=== PATIENT | male | born 1970 | race Two or more races ===

== ENCOUNTER 2023-03-16 19:31 | Inpatient (IN) | payer OTHER, MEDICAID ==
[~2023-03-16] VITALS: Ht 180.3 cm; Wt 61.9 kg
[2023-03-16] MEDS ORDERED: HYDROmorphone HCL 2 MG/ML VL/or syr IM ONE (22:30)
[2023-03-16 23:21] LABS: Basophils # (auto) 0.2 10 ^3/uL (0-0.2); Basophils % (auto) 3.7 % (0.0-2.0); Eosinophils # (auto) 0.1 10 ^3/uL (0-0.8); Hematocrit 38.7 % (41.0-53.0); Hemoglobin 13.2 g/dL (13.5-17.5); Lymphocytes # (auto) 2.6 10 ^3/uL (0.4-5.4); Lymphocytes % (auto) 38.9 % (10.0-50.0); Mean Corpuscular Hemoglobin 30.8 pg (28.0-32.0); Mean Corpuscular Hgb Conc. 34.2 g/dL (32.0-36.0); Mean Corpuscular Volume 90.3 fL (80.0-100.0); Monocytes # (auto) 0.2 10 ^3/uL (0-1.3); Monocytes % (auto) 3.5 % (0.0-12.0); Neutrophils # (auto) 3.5 10 ^3/uL (1.6-8.6); Neutrophils % (auto) 52.9 % (37.0-80.0); Nucleated Red Blood Cells % 0.2 %; Red Blood Cells 4.28 10^6/uL (4.5-5.90); Red Cell Distribution Width 13.8 % (11.8-14.3); White Blood Cell 6.6 10^3/uL (4.4-10.8)
[2023-03-16 23:28] LABS: Albumin 3.5 g/dL (3.4-5.0); Calcium 9.4 mg/dL (8.5-10.1); Potassium 3.5 mmol/L (3.5-5.1)
[2023-03-16 23:32] LABS: BUN/Creatinine Ratio 12.6 (10.0-20.0); Bilirubin, Total 0.9 mg/dL (0.2-1.0); Total Protein 8.9 g/dL (6.4-8.2)
[2023-03-17] MEDS ORDERED: ONDANSETRON ODT 4 MG TAB PO ONE (08:00)
[2023-03-17] MEDS ORDERED: MORPHINE SULFATE 4 MG/ML SYR/VIAL IM ONE (08:00)
[2023-03-17] MEDS ORDERED: chlordiazePOXIDE HCL 25 MG CAP PO ONE ×2 (09:30→21:30)
[2023-03-17 13:55] LABS: Hematocrit 37.4 % (41.0-53.0); Hemoglobin 12.3 g/dL (13.5-17.5); Mean Corpuscular Hemoglobin 30.4 pg (28.0-32.0); Red Blood Cells 4.07 10^6/uL (4.5-5.90); Red Cell Distribution Width 13.6 % (11.8-14.3); White Blood Cell 5.8 10^3/uL (4.4-10.8)
[2023-03-17 14:22] LABS: Band Neutrophils % (manual) 0; Basophils % (manual) 0 (0.0-2.0); Blast Cells 0; Eosinophils % (manual) 0 (0-7); Metamyelocytes % 0; Myelocytes % 0; Promyelocytes % 0; Reactive Lymphocytes 0
[2023-03-17 14:35] LABS: Albumin 3.3 g/dL (3.4-5.0); Calcium 9.2 mg/dL (8.5-10.1); Potassium 3.9 mmol/L (3.5-5.1)
[2023-03-17 14:37] LABS: BUN/Creatinine Ratio 19.2 (10.0-20.0); Bilirubin, Total 1.4 mg/dL (0.2-1.0); Total Protein 8.4 g/dL (6.4-8.2)
[2023-03-17 15:21] LABS: Lymphocytes % (manual) 65 (10.0-50.0); Monocytes % (manual) 3 (0-12)
[2023-03-17] MEDS: KETOROLAC TROMETH 30 MG/ML 1ML VIAL IV ONE ×2 (15:30→17:13)
[2023-03-17] MEDS ORDERED: LIDOCAINE 5% TOPICAL PATCH TOP ONE (15:30)
[2023-03-17] MEDS ORDERED: ACETAMINOPHEN 325 MG TAB PO PRN (15:30)
[2023-03-17] MEDS ORDERED: HYDR-3682 PO (15:35)
[2023-03-17] MEDS ORDERED: ATOR20TA50 PO (15:35)
[2023-03-17] MEDS ORDERED: AMLO-496 PO (15:35)
[2023-03-17] MEDS ORDERED: ATEN25TA PO (15:35)
[2023-03-17] MEDS ORDERED: SODIUM CHLORIDE 0.9% 1,000 ML IV ONE ×2 (15:45)
[2023-03-17] MEDS ORDERED: NICOTINE 7MG/24HR TOPICAL PATCH TD ONE (15:45)
[2023-03-17] MEDS ORDERED: PANTOPRAZOLE 40 MG/10 ML VIAL INJ IV ONE (15:45)
[2023-03-17 16:22] LABS: INR 1.06 (0.9-1.15); Partial Thromboplastin Time 31.7 sec (24.6-33.4)
[2023-03-17 17:14] LABS: Cholesterol 214 mg/dL (< 200); HDL Cholesterol 89 mg/dL (40-59); LDL Cholesterol 106 mg/dL (< 100); Triglycerides 130 mg/dL (< 150)
[2023-03-17 22:23] VITALS: BP 99/70
[2023-03-17] MEDS ORDERED: MORP1TAB14 PO (22:46)
[2023-03-17] MEDS ORDERED: CHLO25CA56 PO (22:46)
[2023-03-18] VITALS (7 sets, daily range): BP systolic 76–107; BP diastolic 45–77
[2023-03-18] MEDS: HYDROcodone-ACET 5/325MG TAB PO PRN ×2 (00:22→10:02)
[2023-03-18 06:06] LABS: Potassium 3.4 mmol/L (3.5-5.1)
[2023-03-18 06:17] LABS: Albumin 2.5 g/dL (3.4-5.0); BUN/Creatinine Ratio 13.3 (10.0-20.0); Bilirubin, Total 1.1 mg/dL (0.2-1.0); Calcium 8.2 mg/dL (8.5-10.1); Total Protein 6.6 g/dL (6.4-8.2)
[2023-03-18 06:46] LABS: Hematocrit 32.7 % (41.0-53.0); Mean Corpuscular Hemoglobin 30.3 pg (28.0-32.0); Mean Corpuscular Hgb Conc. 33.7 g/dL (32.0-36.0); Mean Corpuscular Volume 89.8 fL (80.0-100.0); Red Blood Cells 3.65 10^6/uL (4.5-5.90); Red Cell Distribution Width 13.4 % (11.8-14.3); White Blood Cell 4.6 10^3/uL (4.4-10.8)
[2023-03-18 06:50] LABS: Basophils % (manual) 0 (0.0-2.0); Blast Cells 0; Metamyelocytes % 0; Myelocytes % 0; Promyelocytes % 0
[2023-03-18 07:24] LABS: Band Neutrophils % (manual) 1; Eosinophils % (manual) 2 (0-7); Lymphocytes % (manual) 57 (10.0-50.0); Monocytes % (manual) 5 (0-12); Reactive Lymphocytes 1
[2023-03-18] MEDS: PANTOPRAZOLE 40 MG/10 ML VIAL INJ IV SCH (10:02)
[2023-03-18] MEDS: NICOTINE 7MG/24HR TOPICAL PATCH TD SCH (10:03)
[2023-03-18] MEDS: LIDOCAINE 5% TOPICAL PATCH TOP SCH (10:03)
[2023-03-18] MEDS ORDERED: QUET50TA27 PO (15:18)
[2023-03-18] MEDS ORDERED: TRAZ50TA2 PO (15:18)
[2023-03-18] MEDS ORDERED: CITA-77 PO (15:18)
[2023-03-18] MEDS ORDERED: POM PO (15:24)
[2023-03-18] MEDS: MORPHINE SULFATE INJ 2 MG/ml SYRG IV PRN (17:55)
[2023-03-18] MEDS ORDERED: ALPRAZolam 0.5 MG TAB PO ONE (20:00)
[2023-03-19 05:00] VITALS: BP 87/58
[2023-03-19] MEDS: PANTOPRAZOLE 40 MG/10 ML VIAL INJ IV SCH (09:46)
[2023-03-19] MEDS: LIDOCAINE 5% TOPICAL PATCH TOP SCH (09:47)
[2023-03-19] MEDS: NICOTINE 7MG/24HR TOPICAL PATCH TD SCH (09:47)
[2023-03-19 13:00] VITALS: BP 74/44
[2023-03-19] MEDS ORDERED: chlordiazePOXIDE HCL 25 MG CAP PO ONE (16:00)
[2023-03-19] MEDS ORDERED: SODIUM CHLORIDE 0.9% 500 ML IV ONE (16:00)
[2023-03-19 17:00] VITALS: BP 94/53
[2023-03-19 22:00] VITALS: BP 85/51
[2023-03-19] MEDS ORDERED: ATORVASTATIN 20 MG TAB PO SCH (22:00)
[2023-03-19] MEDS: chlordiazePOXIDE HCL 25 MG CAP PO SCH (22:24)
[2023-03-20] MEDS: MORPHINE SULFATE INJ 2 MG/ml SYRG IV PRN ×2 (02:04→09:22)
[2023-03-20 03:43] LABS: Urine Bacteria FEW /hpf (None Seen); Urine Blood Negative /uL (Negative); Urine Specific Gravity 1.008 (1.001-1.035); Urine WBC 12 /hpf (0 - 3)
[2023-03-20 05:00] VITALS: BP 89/56
[2023-03-20] MEDS ORDERED: D AMPHETAMINE 30 MG PO SCH (08:00)
[2023-03-20 09:00] VITALS: BP 113/82
[2023-03-20] MEDS: LIDOCAINE 5% TOPICAL PATCH TOP SCH (09:19)
[2023-03-20] MEDS: PANTOPRAZOLE 40 MG/10 ML VIAL INJ IV SCH (09:19)
[2023-03-20] MEDS: NICOTINE 7MG/24HR TOPICAL PATCH TD SCH (09:20)
[2023-03-20] MEDS ORDERED: methylPREDNISolone SOD SUCC 40 MG/ML VL IV SCH (10:00)
[2023-03-20] MEDS ORDERED: CITALOPRAM HYDROBR 20 MG TAB PO SCH (10:00)
[2023-03-20] MEDS ORDERED: traZODone HCL 50 MG TAB PO SCH (10:00)
[2023-03-20] MEDS: chlordiazePOXIDE HCL 25 MG CAP PO SCH (11:23)
[2023-03-20 13:17] VITALS: BP 124/79
[2023-03-20 16:56] VITALS: BP 111/69
== END 2023-03-20 18:05 | DRG 552 ==
LOC: EDBD 19:31 → ER 19:31 → OVERFLOW 03-17 15:22 → CENTRAL 03-17 20:49
PROVIDERS: ADMIT Registered Nurse; ATTEND Internal Medicine
DX: M54.50 Low back pain, unspecified (principal); G89.29 Other chronic pain; I10 Essential (primary) hypertension; F41.9 Anxiety disorder, unspecified; F17.210 Nicotine dependence, cigarettes, uncomplicated; M54.10 Radiculopathy, site unspecified; F10.10 Alcohol abuse, uncomplicated; Y90.9 Presence of alcohol in blood, level not specified; Z59.00 Homelessness unspecified; Z98.1 Arthrodesis status
CPT/HCPCS: 36415; 70450; 72131; 72148; 80053; 80061; 80320; 81001; 83880; 85007; 85025; 85027; 85610; 85730; 96372; 97163; C9113; G0378; J1885; Q0162